=== PATIENT | female | born 1955 | race Two or more races ===

== ENCOUNTER 2020-11-13 11:25 | Inpatient (IN) | payer MEDICARE ==
[~2020-11-13] VITALS: Ht 167.6 cm; Wt 94.3 kg
--- NOTE | 2020-11-13 11:40 | NUR ---
home for generalized weakness unable to get out of bed, confusion. vs checked. hooked on monitor. iv access started blood draw done. seen by
[2020-11-13] MEDS ORDERED: ONDANSETRON HCL/PF 4 MG/2 ML VIAL IVP ONE (12:00)
[2020-11-13] MEDS ORDERED: MORPHINE SULFATE INJ 4 MG/ML DISP.SYRIN ONE (12:00)
[2020-11-13] MEDS ORDERED: ONDANSETRON HCL/PF 4 MG/2 ML VIAL ONE (12:00)
[2020-11-13] MEDS ORDERED: MORPHINE SULFATE INJ 2 MG/ML DISP.SYRIN IV ONE (12:00)
[2020-11-13] MEDS ORDERED: MAG HYDROX/AL HYDROX/SIMETH 30 ML UDC PO ONE (12:00)
[2020-11-13] MEDS ORDERED: MAG HYDROX/AL HYDROX/SIMETH 30 ML UDC ONE (12:00)
[2020-11-13 12:01] LABS: BASOPHILS # (AUTO) 0.1 /CMM (0.0-0.2); BASOPHILS % (AUTO) 0.9 % (0.0-2.0); HEMATOCRIT 42 % (33-45); HEMOGLOBIN 15.2 g/dL (11.5-14.8); LYMPHOCYTES # (AUTO) 0.6 /CMM (0.8-4.8); LYMPHOCYTES % (AUTO) 4.1 % (20.0-44.0); MEAN CORPUSCULAR HGB CONC 36 g/dl (31.0-36.0); MEAN CORPUSCULAR VOLUME 101 fL (82-100); MONOCYTES % (AUTO) 6.9 % (2.0-12.0); NEUTROPHILS # (AUTO) 13.1 /CMM (1.8-8.9); NEUTROPHILS % (AUTO) 88.1 % (43.0-81.0); PLATELET COUNT (AUTO) 249 /CMM (150-450); RED BLOOD CELL COUNT(AUTO) 4.18 MIL/uL (4.0-5.2); WHITE BLOOD COUNT (AUTO) 14.8 K/uL (4.3-11.0)
[2020-11-13 12:16] LABS: ALANINE AMINOTRANSFERASE 85 U/L (12-78); ALBUMIN 3.6 g/dL (3.4-5.0); ALKALINE PHOSPHATASE 100 U/L (46-116); ASPARTATE AMINOTRANSFERASE 44 U/L (15-37); BILIRUBIN,DIRECT 0.4 mg/dL (0.0-0.2); BILIRUBIN,TOTAL 1.4 mg/dL (0.2-1.0); CALCIUM, SERUM 9.3 mg/dL (8.5-10.1); CARBON DIOXIDE 29 mmol/L (21-32); CHLORIDE 84 mmol/L (98-107); CREATININE 0.7 mg/dL (0.6-1.3); GLUCOSE 127 mg/dL (74-106); LIPASE 68 U/L (73-393); SODIUM SERUM 124 mmol/L (136-145); TOTAL PROTEIN, SERUM 8.3 g/dL (6.4-8.2); UREA NITROGEN, BLOOD 14 mg/dL (7-18)
[2020-11-13 12:18] LABS: POTASSIUM 2.5 mmol/L (3.5-5.1)
--- NOTE | 2020-11-13 12:20 | NUR ---
covid swab pcr and antigen collected sent to lab
[2020-11-13] MEDS ORDERED: POTASSIUM CHLORIDE 20 MEQ TAB.PRT.SR PO ONE ×2 (13:00→13:25)
--- NOTE | 2020-11-13 13:02 | NUR ---
received a call from the lab regarding covid result "negative".
--- NOTE | 2020-11-13 13:22 | NUR ---
PAGED [facility].
[2020-11-13] MEDS ORDERED: POTASSIUM CL. PREMIX PERIPHER. 200 ML ONE (13:25)
[2020-11-13] MEDS: POTASSIUM CL. PREMIX PERIPHER. 50 ML IV SCH ×4 (13:30→16:30)
--- NOTE | 2020-11-13 14:35 | NUR ---
Juan (brother) [phone] updates provided to pts family at the waiting room.
[2020-11-13] MEDS ORDERED: Z GUARD REMEDY 2 OZ OINT TP PRN (15:00)
[2020-11-13] MEDS ORDERED: ZOLPIDEM TARTRATE 5 MG TABLET PO PRN (15:00)
[2020-11-13] MEDS ORDERED: MAG HYDROX/AL HYDROX/SIMETH 30 ML UDC PO PRN (15:00)
[2020-11-13] MEDS ORDERED: MAGNESIUM HYDROXIDE 30 ML UDC PO PRN (15:00)
[2020-11-13] MEDS ORDERED: ACETAMINOPHEN 325 MG TABLET PO PRN (15:00)
[2020-11-13 15:47] LABS: CREATININE, URINE 312.2 MG/DL (30.0-125.0)
[2020-11-13 15:48] LABS: BILIRUBIN,URINE MODERATE (NEGATIVE); COLOR,URINE YELLOW (YELLOW); LEUKOCYTE ESTERASE ,URINE NEGATIVE (NEGATIVE); NITRITE, URINE NEGATIVE (NEGATIVE); PROTEIN,URINE 30 mg/dl (NEGATIVE); UGLUCOSE NEGATIVE (NEGATIVE)
[2020-11-13 16:12] LABS: BACTERIA,URINE 1+ /HPF (None Seen); MUCUS,URINE Moderate /LPF (None Seen); RBC,URINE 0-2 /HPF (0-2); SQUAMOUS EPITHELIAL CELL,UR 0-2 /HPF (None Seen)
--- NOTE | 2020-11-13 16:30 | NUR ---
report given to brenda barakat at [facility]
--- NOTE | 2020-11-13 16:31 | NUR ---
NURSING SUP GAVE TELE BED 112-2.
--- NOTE | 2020-11-13 16:49 | NUR ---
pt transferred to 112
--- NOTE | 2020-11-13 17:00 | NUR ---
RN NOTES BEDSIDE ENDORSEMENT RECEIVED FROM CARLOS A ADAME FROM ER.
[2020-11-13 18:52] VITALS: BP 147/74
--- NOTE | 2020-11-13 18:57 | NUR ---
HUMAN RESOURCES TEMP ADMITTING NOTES ADMITTED 65YO FEMALE FROM ER W/ ADMITTING DIAGNOSIS OF GENERALIZED WEAKNESS AND COMPLAINT OF NAUSEA/VOMITING. PATIENT IS AWAKE AND VERBALLY RESPONSIVE. A/O X4, ABLE TO MAKE NEEDS KNOWN. BREATHING EVEN AND UNLABORED, ON ROOM AIR. IV LINE ON RAC #18, INTACT AND PATENT, W/ IVF OF NS AT 75CC/HR, INFUSING WELL. SKIN CHECK DONE, NO ISSUES NOTED. SAFETY PRECAUTIONS IN PLACE: BED LOCKED AND ON LOWEST POSITION, SR UP X2, CALL LIGHT USE DEMONSTRATED TO PATIENT W/ RETURN DEMO, W/IN REACH. WILL ENDORSE TO BLOCKMASON RN FOR MARY LOU.
[2020-11-13] MEDS: IV NS 0.9% 1,000 ML IV PRN (19:13)
--- NOTE | 2020-11-13 19:55 | NUR ---
RN NOTE PT RECEIVED IN BED RESTING, A/A/O X4, ON RA O2 SAT 98%, PT HAS UNLABORED BREATHING, SAFETY MEASURES IN PLACE.
[2020-11-13 20:00] VITALS: BP_SYST 143; BP_SYST 151; BP_DIAS 80
[2020-11-13] MEDS: PANTOPRAZOLE 40 MG TABLET.DR PO SCH (20:42)
[2020-11-13] MEDS: ENOXAPARIN SODIUM 40 MG/0.4 ML DISP.SYRIN SQ SCH (20:43)
[2020-11-14] VITALS (10 sets, daily range): BP systolic 119–172; BP diastolic 65–98
--- NOTE | 2020-11-14 01:00 | NUR ---
RN NOTE PT HAS BP LOWEST 167/82, HIGHEST 172/80.JOANIE UNIVERSITY LECTURER MADE AWARE, RECEIVED ORDER FOR CATAPRES 0.1 MG PO Q6H PRN FOR SBP> 160.
[2020-11-14] MEDS: CLONIDINE HCL 0.1 MG TABLET PO PRN ×2 (01:25→16:36)
[2020-11-14 07:15] LABS: BASOPHILS % (AUTO) 0.3 % (0.0-2.0); EOSINOPHILS % (AUTO) 0.3 % (0.0-6.0); HEMATOCRIT 36 % (33-45); LYMPHOCYTES # (AUTO) 1.1 /CMM (0.8-4.8); LYMPHOCYTES % (AUTO) 9.1 % (20.0-44.0); MEAN CORPUSCULAR HGB CONC 36 g/dl (31.0-36.0); MEAN CORPUSCULAR VOLUME 101 fL (82-100); MONOCYTES # (AUTO) 0.9 /CMM (0.1-1.30); MONOCYTES % (AUTO) 8.2 % (2.0-12.0); NEUTROPHILS # (AUTO) 9.4 /CMM (1.8-8.9); NEUTROPHILS % (AUTO) 82.1 % (43.0-81.0); PLATELET COUNT (AUTO) 202 /CMM (150-450); WHITE BLOOD COUNT (AUTO) 11.5 K/uL (4.3-11.0)
--- NOTE | 2020-11-14 07:16 | NUR ---
RN NOTE PT REMAINED STABLE DURING MY SHIFT, REPORT GIVEN TO INCOMING SHIFT FOR MARY LOU.
[2020-11-14 07:20] LABS: CALCIUM, SERUM 8.4 mg/dL (8.5-10.1); CREATININE 0.4 mg/dL (0.6-1.3); MAGNESIUM 2.1 mg/dL (1.8-2.4); PHOSPHORUS 2.4 mg/dL (2.5-4.9); POTASSIUM 3.4 mmol/L (3.5-5.1)
--- NOTE | 2020-11-14 07:20 | NUR ---
ASPHALT PAVING SUPERVISOR OPENING NOTES PATIENT IS SLEEPING IN BED, ABLE TO BE AWAKENED. A/O X4, ABLE TO MAKE NEEDS KNOWN. BREATHING EVEN AND UNLABORED, ON ROOM AIR. IV LINE ON RAC #18, INTACT AND PATENT, IVF OF NS AT 75CC/HR, INFUSING WELL. SAFETY PRECAUTIONS IN PLACE: BED LOCKED AND ON LOWEST POSITION, SR UP X2, CALL LIGHT W/IN REACH. WILL CONTINUE TO MONITOR.
[2020-11-14] MEDS: PANTOPRAZOLE 40 MG TABLET.DR PO SCH ×3 (08:27→22:05)
[2020-11-14 09:58] LABS: THYROID STIMULATING HORMONE 1.205 uIU/mL (0.358-3.74)
[2020-11-14] MEDS ORDERED: POTASSIUM CHLORIDE 20 MEQ TAB.PRT.SR PO SCH (10:00)
[2020-11-14] MEDS ORDERED: NEUTRA PHOS 1 POWD.PACKET PO ONE (11:00)
--- NOTE | 2020-11-14 13:30 | NUR ---
RN NOTES PATIENT TRANSFERRED TO MS-2 ROOM 204. BEDSIDE ENDORSEMENT AND PATIENT REPORT GIVEN TO CARLOS A NAVARRO, FOR MARY LOU.
--- NOTE | 2020-11-14 13:34 | NUR ---
RN NOTE Patient arrived from [facility], bedside report received from Abner STRAUSS. Patient is A/Ox4, showing no signs of acute distress or SOB, stable on RA. IV line is clean and intact flushing well. Patient denies any pain or discomfort at this time. Bed is in lowest position, side rails x2, in upright position, call light is within reach, fall safety and aspiration precautions enforced. Will continue with plan of care.
[2020-11-14] MEDS: IV NS 0.9% 1,000 ML IV PRN (14:42)
[2020-11-14] MEDS: ONDANSETRON HCL/PF 4 MG/2 ML VIAL IVP PRN ×2 (17:25→22:17)
--- NOTE | 2020-11-14 19:06 | NUR ---
RN CLOSING NOTE Patient is A/Ox4, showing no signs of acute distress or SOB, stable on RA. IV line is clean and intact flushing well. Patient denies any pain or discomfort at this time. Patient is able to transfer to bedside commode with assistance. All patient needs met, all due medications given, patient kept clean and dry throughout shift. Bed is in lowest position, side rails x2, in upright position, call light is within reach, fall safety and aspiration precautions enforced. Will endorse to plant operator/shift supervisor for MARY LOU.
--- NOTE | 2020-11-14 19:44 | NUR ---
BUFFING AND SUEDING MACHINE OPERATOR OPENING NOTES PATIENT IN BED A/O X4; ABLE TO MAKE NEEDS KNOWN. ON ROOM AIR; TOLERATING WELL WITH NO SOB AT THIS TIME. ON EXTERNAL TELE MONITORING; READS SR AND HR AT 84. IV #22 ON RFA; PATENT AND INTACT; INFUSING NS @ 75 ML/HR. PATIENT DENIES PAIN OR DISCOMFORT AT THIS TIME. SAFETY MEASURES IN PLACE: BED IN LOWEST LOCK POSITION, SIDE RAILS UP X2, CALL LIGHT WITHIN REACH. WILL CONTINUE TO MONITOR.
[2020-11-14] MEDS: ENOXAPARIN SODIUM 40 MG/0.4 ML DISP.SYRIN SQ SCH ×2 (21:00→22:15)
[2020-11-14] MEDS: HYDROCODONE/APAP 5/325MG TABLET PO PRN (22:17)
--- NOTE | 2020-11-14 23:27 | NUR ---
ASSEMBLER RUBBER FOOTWEAR NOTES - REFUSED MEDS PATIENT C/O NAUSEA AND PAIN. REMOVED ZOFRAN 4MG IV AND HYDROCODONE 5-325MG. OPENED MEDICATIONS AND OFFERED TO PATIENT BUT REFUSED. MEDICATIONS WASTED APPROPRIATELY.
[2020-11-15] VITALS (8 sets, daily range): BP systolic 144–172; BP diastolic 65–93
[2020-11-15] MEDS: IV NS 0.9% 1,000 ML IV PRN ×2 (03:39→18:37)
[2020-11-15] MEDS: HYDROCODONE/APAP 5/325MG TABLET PO PRN ×2 (03:41→22:49)
--- NOTE | 2020-11-15 03:45 | NUR ---
ENVELOPE PATTERNMAKER NOTES - PAIN PATIENT C/O GENERALIZED PAIN 04/30. ADMINISTERED NORCO 5-325MG PO AT 0341. WILL ASSESS PAIN ACCORDINGLY.
--- NOTE | 2020-11-15 06:22 | NUR ---
CORRECTIONAL AGENCY DIRECTOR OPENING NOTES PATIENT IN BED A/O X3; WITH CONFUSION; REORIENTED PATIENT; ABLE TO MAKE NEEDS KNOWN. ON ROOM AIR; TOLERATING WELL WITH NO SOB AT THIS TIME. ON EXTERNAL TELE MONITORING; READS SR AND HR AT 86. IV #22 ON RFA; PATENT AND INTACT; INFUSING NS @ 75 ML/HR. ALL NEEDS MET. SAFETY MEASURES IN PLACE: BED IN LOWEST LOCK POSITION, SIDE RAILS UP X2, CALL LIGHT WITHIN REACH. WILL ENDORSE MARY LOU TO ONCOMING MORNING RN.
[2020-11-15 07:06] LABS: CALCIUM, SERUM 8.5 mg/dL (8.5-10.1); CREATININE 0.5 mg/dL (0.6-1.3); PHOSPHORUS 2.2 mg/dL (2.5-4.9); POTASSIUM 3.6 mmol/L (3.5-5.1)
[2020-11-15 07:20] LABS: THYROID STIMULATING HORMONE 1.389 uIU/mL (0.358-3.74); URIC ACID 4.7 mg/dL (2.6-7.2)
--- NOTE | 2020-11-15 07:31 | NUR ---
SOLVENT PLANT OPERATOR OPENING NOTES PATIENT IS RESTING IN BED, AWAKE AND VERBALLY RESPONSIVE. A/O X4, ABLE TO MAKE NEEDS KNOWN. BREATHING EVEN AND UNLABORED, ON ROOM AIR. IV LINE ON RFA #22, INTACT AND PATENT, IVF OF NS AT 75CC/HR, INFUSING WELL. SAFETY PRECAUTIONS IN PLACE: BED LOCKED AND ON LOWEST POSITION, SR UP X2, CALL LIGHT W/IN REACH. WILL CONTINUE TO MONITOR.
[2020-11-15] MEDS: PANTOPRAZOLE 40 MG TABLET.DR PO SCH ×2 (08:07→21:12)
[2020-11-15] MEDS: ONDANSETRON HCL/PF 4 MG/2 ML VIAL IVP PRN (08:08)
--- NOTE | 2020-11-15 09:25 | NUR ---
RN NOTES PATIENT COMPLAINT OF NAUSEA; PRN ZOFRAN GIVEN ORDERED. NO COMPLAINT OF NAUSEA AT THIS TIME. WILL CONTINUE TO MONITOR.
--- NOTE | 2020-11-15 11:08 | NUR ---
RN NOTES SPOKE W/ LLOYD ([phone]), PATIENT'S BROTHER, AND INFORMED ABOUT PATIENT'S CONDITION AND PROGRESS.
--- NOTE | 2020-11-15 12:55 | NUR ---
RN NOTES PATIENT SEEN BY PT TODAY AT BEDSIDE; ABLE TO STAND USING FWW FOR GAIT STEADINESS BUT NEEDS ASSISTANCE TO MAINTAIN STANDING BALANCE. NO COMPLAINT OF DIZZINESS NOR SOB. WILL CONTINUE TO MONITOR.
--- NOTE | 2020-11-15 16:45 | NUR ---
RN NOTES BP TAKEN AT 172/85, RETAKEN AFTER 30 MINUTES AND OBTAINED 167/95, HR-86; WITH STANDING ORDER OF CLONIDINE PRN. WILL ADMINISTER AND REEVALUATE BP APPLICABLE.
[2020-11-15] MEDS: CLONIDINE HCL 0.1 MG TABLET PO PRN (16:54)
--- NOTE | 2020-11-15 18:59 | NUR ---
MALT HOUSE LOADER CLOSING NOTES PATIENT IS IN BED, AWAKE AND VERBALLY RESPONSIVE. A/O X3, MAY HAVE EPISODE OF FORGETFULNESS, BUT ABLE TO MAKE NEEDS KNOWN. BREATHING EVEN AND UNLABORED, TOLERATING ROOM AIR. IV LINE ON RFA #22, INTACT AND PATENT, IVF OF NS AT 75CC/HR, INFUSING WELL. ON TELE MONITORING W/ READING OF SR, HR IN THE MID 70'S, NO CARDIAC DISTRESS NOTED. SAFETY PRECAUTIONS MAINTAINED: BED LOCKED AND ON LOWEST POSITION, SR UP X2, CALL LIGHT W/IN REACH. WILL ENDORSE TO POULTRY SEXER RN FOR MARY LOU.
[2020-11-15] MEDS: ENOXAPARIN SODIUM 40 MG/0.4 ML DISP.SYRIN SQ SCH (21:18)
[2020-11-16] VITALS: BP 165/93
[2020-11-16] MEDS: CLONIDINE HCL 0.1 MG TABLET PO PRN ×2 (00:12→15:28)
[2020-11-16 03:45] VITALS: BP 159/77
[2020-11-16 04:00] VITALS: BP 159/77
[2020-11-16] MEDS: IV NS 0.9% 1,000 ML IV PRN (06:12)
--- NOTE | 2020-11-16 06:22 | NUR ---
CANCER PROGRAM DIRECTOR CLOSING NOTES: PATIENT IN BED AWAKE, A/O X3, FORGETFUL. NO S/S OF DISTRESS NOTED. COMPLAINED OF PAIN, NORCO 1 TAB PO GIVEN [id number]. CALL LIGHT WITHIN REACH. BED ALARM ON. BED IN LOWEST AND LOCKED POSITION.
[2020-11-16 07:31] LABS: CALCIUM, SERUM 8.1 mg/dL (8.5-10.1); CREATININE 0.4 mg/dL (0.6-1.3); POTASSIUM 3.8 mmol/L (3.5-5.1)
--- NOTE | 2020-11-16 07:52 | NUR ---
RN Opening note Received patient in bed, AO x 3, able to responds all stimuli, Pt does no c/o pain or distress at this time. Skin is warm to touch keep clean/dry, intact IV site on right FA 22g running NS at 75ml/hr , respiratory even and unlabored on room air, O2sat 99%. Kept locked bed with elevated HOB for aspiration precaution and ensure airway and lowest bed foe safety. Call light within reach, will continue to monitor.
[2020-11-16 08:00] VITALS: BP 163/96
[2020-11-16] MEDS: PANTOPRAZOLE 40 MG TABLET.DR PO SCH ×2 (08:18→20:43)
--- NOTE | 2020-11-16 11:20 | NUR ---
Patient noticed negative COVID PCR, MD aware and agree to transfer 3W.
[2020-11-16 16:00] VITALS: BP 184/96
--- NOTE | 2020-11-16 18:30 | NUR ---
Patient transferred to , given report Beckie/CARLOS A.
--- NOTE | 2020-11-16 19:57 | NUR ---
RN NOTES Received patient in bed, AO x 3, alert and awake, no signs of pain noted or reported, no respiratory distress at this time. Skin is warm to touch keep clean/dry, intact IV site on right FA 22g running NS at 75ml/hr,respiratory even and unlabored on room air, O2sat 99%. Kept locked bed with elevated HOB for aspiration precaution and ensure airway and lowest bed for safety. Call light within reach, will continue to monitor.
[2020-11-16 20:00] VITALS: BP 168/100
[2020-11-16] MEDS: ENOXAPARIN SODIUM 40 MG/0.4 ML DISP.SYRIN SQ SCH (20:44)
[2020-11-17] MEDS: HYDROCODONE/APAP 5/325MG TABLET PO PRN (00:28)
--- NOTE | 2020-11-17 07:20 | NUR ---
MANIFOLD OPERATOR OPENING NOTES PATIENT IS SLEEPING IN BED, ABLE TO BE AWAKENED. A/O X3, ABLE TO MAKE NEEDS KNOWN. BREATHING EVEN AND UNLABORED, ON ROOM AIR. IV LINE ON RFA #22, INTACT AND PATENT. SAFETY PRECAUTIONS IN PLACE: BED LOCKED AND ON LOWEST POSITION, SR UP X2, CALL LIGHT W/IN REACH. WILL CONTINUE TO MONITOR.
[2020-11-17 07:40] LABS: BASOPHILS % (AUTO) 0.6 % (0.0-2.0); EOSINOPHILS % (AUTO) 2.1 % (0.0-6.0); HEMATOCRIT 35 % (33-45); HEMOGLOBIN 12.6 g/dL (11.5-14.8); LYMPHOCYTES % (AUTO) 15.7 % (20.0-44.0); MEAN CORPUSCULAR HGB CONC 36 g/dl (31.0-36.0); MEAN CORPUSCULAR VOLUME 101 fL (82-100); MONOCYTES # (AUTO) 0.5 /CMM (0.1-1.30); MONOCYTES % (AUTO) 8.2 % (2.0-12.0); NEUTROPHILS # (AUTO) 4.9 /CMM (1.8-8.9); NEUTROPHILS % (AUTO) 73.4 % (43.0-81.0); PLATELET COUNT (AUTO) 186 /CMM (150-450); WHITE BLOOD COUNT (AUTO) 6.7 K/uL (4.3-11.0)
--- NOTE | 2020-11-17 07:46 | NUR ---
RN NOTES in bed, AO x 3, alert and awake, no signs of pain noted or reported, no respiratory distress at this time. Skin is warm to touch keep clean/dry, intact IV site on right FA 22g running NS at 75ml/hr,respiratory even and unlabored on room air, O2sat 99%. Kept locked bed with elevated HOB for aspiration precaution and ensure airway and lowest bed for safety. Call light within reach, will continue to monitor.
[2020-11-17 08:00] VITALS: BP 160/111
[2020-11-17] MEDS: PANTOPRAZOLE 40 MG TABLET.DR PO SCH (08:22)
[2020-11-17 08:33] LABS: CALCIUM, SERUM 8.6 mg/dL (8.5-10.1); CREATININE 0.4 mg/dL (0.6-1.3); POTASSIUM 3.8 mmol/L (3.5-5.1)
--- NOTE | 2020-11-17 14:58 | NUR ---
RN NOTES PATIENT REPORT AND D/C INSTRUCTIONS GIVEN TO CARLOS A FRAZIER AT [facility].
[2020-11-17 15:42] VITALS: BP 190/101
[2020-11-17] MEDS: CLONIDINE HCL 0.1 MG TABLET PO PRN (15:42)
--- NOTE | 2020-11-17 15:50 | NUR ---
RN NOTES BP TAKEN AT 196/101; CLONIDINE PRN GIVEN.
--- NOTE | 2020-11-17 16:41 | NUR ---
RN NOTES BP RECHECKED AT 184/84; CALLED [facility] HUGHES AND SPOKE W/ RN MIXER OPERATOR RAW SALT DANIELLE RIVERA TO RECEIVE PATIENT IN THEIR FACILITY. EMT TECHS MADE AWARE AND WILL TRANSFER PATIENT.
== END 2020-11-17 16:50 | DRG 392 ==
LOC: ER 11:30 → TELE1 16:35 → TELE2 11-14 13:22 → MEDSG2 11-16 15:04 → MED 11-16 18:36
PROVIDERS: ATTEND Nurse Practitioner Acute Care
DX: K29.00 Acute gastritis without bleeding (principal); E87.1 Hypo-osmolality and hyponatremia; K50.90 Crohn's disease, unspecified, without complications; Z20.822 Contact with and (suspected) exposure to COVID-19; E87.6 Hypokalemia; K20.90 Esophagitis, unspecified without bleeding; I10 Essential (primary) hypertension; D72.829 Elevated white blood cell count, unspecified; E80.6 Other disorders of bilirubin metabolism; E83.39 Other disorders of phosphorus metabolism; E86.1 Hypovolemia; T39.315A Adverse effect of propionic acid derivatives, initial encounter; Y92.9 Unspecified place or not applicable; Z68.34 Body mass index [BMI] 34.0-34.9, adult; E66.9 Obesity, unspecified; K76.0 Fatty (change of) liver, not elsewhere classified; K44.9 Diaphragmatic hernia without obstruction or gangrene; K57.30 Diverticulosis of large intestine without perforation or abscess without bleeding; Z86.73 Personal history of transient ischemic attack (TIA), and cerebral infarction without residual deficits
CPT/HCPCS: 36415; 70450-TC; 71045-TC; 80048-TC; 80061-TC; 80076-TC; 81001; 82570-TC; 83690-TC; 83735-TC; 83880; 83935-TC; 84100-TC; 84133-TC; 84300-TC; 84443-TC; 84484-TC; 84550-TC; 85025-TC; 85730-TC; 87081-TC; 93307-TC; 97112-TC; 97116-TC; 97530-TC; C9803; G0378; J1650; J2270; J2405; J3480; J7030; U0003